=== PATIENT | male | born 1965 | race Caucasian/White ===

== ENCOUNTER 2019-01-16 12:39 | Emergency (ER) | payer OTHER ==
[2019-01-16 12:56] VITALS: BP 139/82; PULSE 81; RESP 16; TEMP 97.8
--- NOTE | 2019-01-16 13:12 | ED ---
Skin/Abscess/FB HPI - General Stated complaint: RASH, POSS SHINGLES Time Seen by Provider: 01/16/19 12:47 Source: patient, family, RN notes reviewed Mode of arrival: ambulatory Limitations: no limitations - History of Present Illness Initial comments: 53-year-old male presents emergency Department chief complaint of rash to his left side of his neck. Patient states started 4-5 days ago. Patient states that there is not painful or itchy. Denies any new soaps lotions detergents. Patient states he did receive a recent haircut may be related to that. Patient is also on Enbrel for ankylosis spondylitis. Patient denies fevers, chills, neck stiffness. Denies any URI symptoms. - Related Data Previous Rx's Medication Instructions Recorded Cephalexin [Keflex] 500 mg PO Q8HR #30 cap 01/16/19 Triamcinolone 0.1% Cream [Kenalog 1 applicatio TOPICAL BID #15 gram 01/16/19 0.1% Cream] valACYclovir HCL [Valtrex] 1,000 mg PO Q8HR #30 tab 01/16/19 Allergies Allergy/AdvReac Type Severity Reaction Status Date / Time No Known Allergies Allergy Verified 01/16/19 12:56 Review of Systems ROS Statement: Those systems with pertinent positive or pertinent negative responses have been documented in the HPI. ROS Other: All systems not noted in ROS Statement are negative. Past Medical History Additional Past Medical History / Comment(s): ankylosing spondylitis History of Any Multi-Drug Resistant Organisms: None Reported Past Surgical History: No Surgical Hx Reported Past Psychological History: Anxiety, Depression Smoking Status: Current every day smoker Past Alcohol Use History: None Reported Past Drug Use History: None Reported General Exam Limitations: no limitations General appearance: alert, in no apparent distress Head exam: Present: atraumatic, normocephalic, normal inspection Eye exam: Present: normal appearance, PERRL, EOMI. Absent: scleral icterus, conjunctival injection, periorbital swelling ENT exam: Present: normal exam, normal oropharynx, mucous membranes moist, TM's normal bilaterally, normal external ear exam Neck exam: Present: full ROM. Absent: normal inspection (Left posterior to lateral side there is firm papules, mild erythema around the hair follicles noted), tenderness, meningismus, lymphadenopathy Respiratory exam: Present: normal lung sounds bilaterally. Absent: respiratory distress, wheezes, rales, rhonchi, stridor Cardiovascular Exam: Present: regular rate, normal rhythm, normal heart sounds. Absent: systolic murmur, diastolic murmur, rubs, gallop, clicks Course Vital Signs 01/16/19 12:54 Temperature 97.8 F Pulse Rate 81 Respiratory 16 Rate Blood Pressure 139/82 O2 Sat by Pulse 99 Oximetry Medical Decision Making - Medical Decision Making 53-year-old male presented for rash. There is question if this is dermatitis versus early shingles. Patient will be covered for possible folliculitis versus shingles at this time. Disposition Clinical Impression: Dermatitis Disposition: HOME SELF-CARE Condition: Stable Instructions (If sedation given, give patient instructions): Shingles (ED), Contact Dermatitis (ED) Additional Instructions: Please return to the Emergency Department if symptoms worsen or any other concerns. Prescriptions: Cephalexin [Keflex] 500 mg PO Q8HR #30 cap Triamcinolone 0.1% Cream [Kenalog 0.1% Cream] 1 applicatio TOPICAL BID #15 gram valACYclovir HCL [Valtrex] 1,000 mg PO Q8HR #30 tab Is patient prescribed a controlled substance at d/c from ED?: No Referrals: Surya Maria MD [Primary Care Provider] - 1-2 days Time of Disposition: 13:12
== END 2019-01-16 13:23 | disposition home or self-care (01) ==
LOC: EC 12:39
DX: L30.9 Dermatitis, unspecified (principal); F17.200 Nicotine dependence, unspecified, uncomplicated
CPT/HCPCS: 99282